=== PATIENT | male | born 1965 | race Caucasian/White ===

== ENCOUNTER 2019-08-10 02:56 | Emergency (ER) | payer OTHER ==
--- NOTE | 2019-08-10 03:54 | ED ---
Extremity Problem HPI - General Chief complaint: Extremity Problem,Nontraumatic Stated complaint: Arm Pain Time Seen by Provider: 08/10/19 03:18 Source: patient, RN notes reviewed, old records reviewed Mode of arrival: ambulatory Limitations: physical limitation - History of Present Illness Initial comments: This is a 53-year-old male here for evaluation of arm pain, left arm pain extrema pain and bilateral shoulder pain. No to medic injuries noted. Patient admits to recent homelessness, was seen recently for same pain in symptoms. Patient is given medication but symptoms have worsened. Patient states his homelessness and he has no a place to stay tonight hence presented to emergency department for pain control. MD Complaint: extremity pain -: days(s) Location: left, upper extremity History of Same: Yes -: Yes myalgia Radiation: none Severity scale (1-10): 4 Quality: aching Consistency: constant Improves with: nothing Worsens with: nothing Associated Symptoms: denies other symptoms - Related Data Allergies Allergy/AdvReac Type Severity Reaction Status Date / Time No Known Allergies Allergy Verified 08/10/19 03:07 Review of Systems ROS Statement: Those systems with pertinent positive or pertinent negative responses have been documented in the HPI. ROS Other: All systems not noted in ROS Statement are negative. Past Medical History Past Medical History: CVA/TIA, Hypertension Additional Past Medical History / Comment(s): pituitary gland issues History of Any Multi-Drug Resistant Organisms: None Reported Past Surgical History: Orthopedic Surgery, Tonsillectomy Additional Past Surgical History / Comment(s): left knee Past Psychological History: ADD/ADHD, Anxiety, Depression Smoking Status: Never smoker Past Alcohol Use History: Rare Past Drug Use History: None Reported General Exam Limitations: physical limitation General appearance: alert, in no apparent distress Head exam: Present: atraumatic, normocephalic, normal inspection Eye exam: Present: normal appearance, PERRL, EOMI. Absent: scleral icterus, conjunctival injection, periorbital swelling ENT exam: Present: normal exam, mucous membranes moist Neck exam: Present: normal inspection. Absent: tenderness, meningismus, lymphadenopathy Respiratory exam: Present: normal lung sounds bilaterally. Absent: respiratory distress, wheezes, rales, rhonchi, stridor Cardiovascular Exam: Present: regular rate, normal rhythm, normal heart sounds. Absent: systolic murmur, diastolic murmur, rubs, gallop, clicks GI/Abdominal exam: Present: soft, normal bowel sounds. Absent: distended, tenderness, guarding, rebound, rigid Extremities exam: Present: normal inspection, full ROM, normal capillary refill. Absent: tenderness, pedal edema, joint swelling, calf tenderness Back exam: Present: normal inspection Neurological exam: Present: alert, oriented X3, CN II-XII intact Psychiatric exam: Present: normal affect, normal mood Skin exam: Present: warm, dry, intact, normal color. Absent: rash Course Vital Signs 08/10/19 08/10/19 03:01 04:25 Temperature 98.1 F 98 F Pulse Rate 71 69 Respiratory 16 18 Rate Blood Pressure 159/99 145/90 O2 Sat by Pulse 97 98 Oximetry Medical Decision Making - Medical Decision Making 53 male here for evaluation of arm pain. Patient is currently homeless needing a place to stay, getting warm getting out of the cold tonight. Patient also was unable to fill prescription for arm pain. Patient given pain control here in the ER [facility] for discharge home Disposition Clinical Impression: Arm paresthesia, left Disposition: HOME SELF-CARE Condition: Good Instructions (If sedation given, give patient instructions): Paresthesia (ED) Is patient prescribed a controlled substance at d/c from ED?: No Referrals: None,Stated [Primary Care Provider] - 1-2 days
[2019-08-10] MEDS ORDERED: ACET/COD 300 MG/30 MG STARTER PACK 6 TAB BTL PO STA (03:55)
[2019-08-10] MEDS ORDERED: predniSONE 20 MG TAB PO STA (03:55)
[2019-08-10] MEDS ORDERED: Acetaminophen-Codeine 300-30mg TAB PO STA (03:55)
[2019-08-10] MEDS ORDERED: IBUPROFEN 800 MG TAB PO STA (03:55)
[2019-08-10 04:25] VITALS: BP 145/90; PULSE 69; RESP 18; TEMP 98
== END 2019-08-10 04:26 | disposition home or self-care (01) ==
LOC: EC 02:56
DX: R20.2 Paresthesia of skin (principal); Z59.0 Homelessness; M79.18 Myalgia, other site; M79.602 Pain in left arm; M25.511 Pain in right shoulder; M25.512 Pain in left shoulder
CPT/HCPCS: 99283; J7512